=== PATIENT | male | born 1960 | race Two or more races ===

== ENCOUNTER → 2016-12-18 | Outpatient (REF) | payer BC, MEDICARE | LOC: M SFHCLERA 15:06 | PROVIDERS: ATTEND Nurse Practitioner Family | DX: M54.5 Low back pain (principal); R00.2 Palpitations; R07.9 Chest pain, unspecified; R42 Dizziness and giddiness; Z79.899 Other long term (current) drug therapy | CPT/HCPCS: 87086; 93005; G0463 ==